=== PATIENT | female | born 1985 | race Caucasian/White ===

== ENCOUNTER → 2017-05-08 | Outpatient (CLI) | payer BC ==
[~2017-05-08] MED LIST: antidepressant
--- NOTE | 2017-05-09 07:09 | RAD ---
Lumbar spine, 3 views, 05/08/2017: History: Low back pain The lumbar vertebral heights and intervertebral disc spaces are well-maintained. No fracture or dislocation is identified. An IUD is noted in the pelvis at the midline. IMPRESSION: No significant lumbar spine abnormality is detected.
== END | disposition home or self-care (01) ==
LOC: RAD 17:42
PROVIDERS: ATTEND Nurse Practitioner Family
DX: M54.5 Low back pain (principal)
CPT/HCPCS: 72100

== ENCOUNTER 2017-06-18 12:07 | Emergency (ER) | payer BC ==
[~2017-06-18] VITALS: Ht 154.9 cm; Wt 90.7 kg
--- NOTE | 2017-06-18 12:34 | PHYS DOC ---
Past History Past Medical History: Depression Past Surgical History: Appendectomy Additional Past Surgical Histo: bunion repair Smoking: Non-smoker Alcohol Use: None Drug Use: None Adult General Chief Complaint Chief Complaint: SHORTNESS OF BREATH HPI HPI Patient is a 31 yo female with hx of depression and ?? seasonal or environmental allergies who presents with a rash that began yesterday with some generalized feelings of shortness of breath. Patient is a mother of 3 who has a Mirena at this time works as an teacher emotionally impaired who felt an itchy rash develop on her yesterday on her chest wall and her face. She took some Benadryl for her symptoms and unfortunately did not feel any better. She developed some shortness of breath and feeling of "wooziness when the symptoms occurred. She denied any chest pain, abdominal pain, nausea, vomiting, URI-like symptoms like runny nose cough congestion or otherwise. She has sick contact all times when working at the school denies any rash on her hands, palms or soles of her feet she denies any tickborne illnesses, denies any travel outside the country, recent anabiotic use, night sweats fevers or weight loss or other complaints. Considered upon arrival as rashes to consider is important to rule out Jasper spotted fever, Lyme Disease, Measles, Mumps, rubella Necrotizing fasciitis toxic shock syndrome, meningococcemia, erythema multiforme , David Levi syndrome, TEN , ITP, TTP, HSP, or disseminated gonorrhea Review of Systems Review of Systems Constitutional: Denies fever or chills [] Eyes: Denies change in visual acuity, redness, or eye pain [] HENT: Denies nasal congestion or sore throat [] Respiratory: Negative for cough positive for mild shortness of breath Cardiovascular: No additional information not addressed in HPI [] GI: Denies abdominal pain, nausea, vomiting, bloody stools or diarrhea [] : Denies dysuria or hematuria [] Musculoskeletal: Denies back pain or joint pain [] Integument: Acid for itchiness and flushing to her skin on her face chest wall Neurologic: Denies headache, focal weakness or sensory changes positive for symptoms of feeling lightheaded and dizzy with the shortness of breath that was transient[] Endocrine: Denies polyuria or polydipsia [] All other systems were reviewed and found to be within normal limits, except as documented in this note. Allergies Allergies Allergies Coded Allergies Type Severity Reaction Last Updated Verified No Known Drug Allergies 02/09/13 No Physical Exam Physical Exam Other vital signs on the chart at this time patient is not tachycardic not tachypnea not hypoxic otherwise normal Constitutional: Well developed, well nourished, no acute distress, non-toxic appearance. She seems somewhat anxious[] HENT: Normocephalic, atraumatic, bilateral external ears normal, oropharynx moist no oral lesions no evidence of tonsillar hypertrophy or exudates., nose normal. [] Eyes: PERRLA, EOMI, conjunctiva normal, no discharge. [] Neck: Normal range of motion, no tenderness, supple, no stridor. [] Cardiovascular:Heart rate regular rhythm, no murmur [] Lungs & Thorax: Bilateral breath sounds clear to auscultation [] Abdomen: Bowel sounds normal, soft, no tenderness, no masses, no pulsatile masses. [] Skin: Has a slight/flushed appearance to the face and cheeks. It is distributed in a bat wing-like pattern on her face and mildly on her chest wall. There are no clear urticaria. Is no mucus member involvement her conjunctiva or mouth. Patient has no pulsatile involvement. There is no target lesions, vesicles, petechiae or rash in her lower external knees. Patient has no joint pain or swelling. Back: No tenderness, no CVA tenderness. [] Extremities: No tenderness, no cyanosis, no clubbing, ROM intact, no edema. [] Neurologic: Alert and oriented X 3, normal motor function, normal sensory function, no focal deficits noted. [] Psychologic: Affect normal, judgement normal, mood normal. [] EKG EKG Patient EKG read by me demonstrate a heart rate of 75 it is sinus rhythm with a P waves every QRS. Patient's MO intervals normal at 120, QRS width is 86 which is normal, QTC is 427 which is normal. Patient has a normal EKG time of EKG is 12:47 PM 06/18/2017[] Radiology/Procedures Radiology/Procedures [] Course & Med Decision Making Course & Med Decision Making Pertinent Labs and Imaging studies reviewed. (See chart for details) []She presents with itching and a rash and reaction to Benadryl to include mild shortness of breath and dizziness. She is on a Mirena implant but she has no other PE risk factors. She is not tachypnea, tachycardic, hypoxic or having any respiratory difficulty at this time. She seems slightly anxious I will provide her Atarax and Pepcid as well as prednisone for her allergic reaction and continue to monitor as a wait for an EKG. EKG is normal, patient is resting quietly with normal vital signs to include no hypoxia or tachypnea and tachycardia. Criteria: Age < than 50 years Heart rate < 100 Oxygen saturation > 95% No hemoptysis No estrogen use No prior DVT or PE No unilateral leg swelling No surgery or trauma requiring hospitalization within the prior 4 weeks With a negative set of vital signs patient's itching is improved but not resolved her redness and flushing interfaces improve considerably secondary evaluation. At this point patient will be provided supportive medications include topical steroid cream for face oral H1 and H2 blockers and PCP follow- up with referral to dermatology or allergy. Impression: Allergic reaction unclear etiology discharge: I've spoken with the patient and/or caregivers. I've explained the patient's condition, diagnosis and treatment plan based on information available to me at this time. I've answered the patient's and/or caregivers questions and addressed any concerns. The patient and/or caregivers have a good understanding the patient's diagnosis, condition and treatment plan as can be expected at this point. Vital signs have been stabilized. The patient's condition is stable for discharge from the emergency department. The patient will pursue further outpatient evaluation with her primary care provider or other designated consulting physician as outlined in the discharge instructions. Patient and/or caregivers are agreeable to this plan of care and follow-up instructions have been explained in detail. The patient and/or caregivers have received these instructions in written format and expressed understanding of these discharge instructions. The patient and her caregivers are aware that if any significant change in condition or worsening of symptoms should prompt him to immediately return to this of the closest emergency department. If an emergent department is not readily available I would encourage him to call 911. Renea Disclaimer Caterinaon Disclaimer This electronic medical record was generated, in whole or in part, using a voice recognition dictation system. Departure Departure: Impression: Primary Impression: Allergic reaction Disposition: 01 HOME, SELF-CARE Condition: STABLE Referrals: ZIA SALVADOR APRN (PCP) Patient Instructions: Allergies, Generic, Allergy Skin Testing Additional Instructions: discharge: I've spoken with the patient and/or caregivers. I've explained the patient's condition, diagnosis and treatment plan based on information available to me at this time. I've answered the patient's and/or caregivers questions and addressed any concerns. The patient and/or caregivers have a good understanding the patient's diagnosis, condition and treatment plan as can be expected at this point. Vital signs have been stabilized. The patient's condition is stable for discharge from the emergency department. The patient will pursue further outpatient evaluation with her primary care provider or other designated consulting physician as outlined in the discharge instructions. Patient and/or caregivers are agreeable to this plan of care and follow-up instructions have been explained in detail. The patient and/or caregivers have received these instructions in written format and expressed understanding of these discharge instructions. The patient and her caregivers are aware that if any significant change in condition or worsening of symptoms should prompt him to immediately return to this of the closest emergency department. If an emergent department is not readily available I would encourage him to call 911. Scripts Famotidine (PEPCID) 20 Mg Tablet 1 TAB PO BID, #20 TAB 0 Refills Prov: TITO GOLDSTEIN MD 06/18/17 Prednisone (PREDNISONE) 20 Mg Tablet 3 TAB PO DAILY for 5 Days, #15 TAB Prov: TITO GOLDSTEIN MD 06/18/17 Fluticasone Propionate (CUTIVATE) 30 Gm Cream..g. 1 LIBBY TP BID, #60 GM 1 Refill Prov: TITO GOLDSTEIN MD 06/18/17 Hydroxyzine Pamoate (VISTARIL) 25 Mg Capsule 1 CAP PO TID, #30 CAP 0 Refills Prov: TITO GOLDSTEIN MD 06/18/17 TITO GOLSDTEIN MD Jun 18, 2017 12:34
[2017-06-18] MEDS ORDERED: predniSONE 20 MG TABLET PO ONE (13:00)
[2017-06-18] MEDS ORDERED: FAMOTIDINE 20 MG TABLET PO ONE (13:00)
[2017-06-18] MEDS ORDERED: hydrOXYzine HCL 25 MG TABLET PO PRN (13:00)
--- NOTE | 2017-06-18 13:02 | EKG ---
[address] [address] Test Date: 2017-06-18 Test Time: 12:47:23 Pat Name: MANDY SOTELO Department: Room: Gender: F Horse [employer] Worker: MACKENZIE : 1985 Requested By: TITO GOLDSTEIN Order Number: [id number] Reading MD: Hector Bragg MD Measurements Intervals [place] Rate: 75 P: 31 SC: 120 QRS: 43 QRSD: 86 T: 14 QT: 380 QTc: 427 Interpretive Statements SINUS RHYTHM Electronically Signed On 06-21-2017 14:10:04 CDT by Hector Bragg MD
[2017-06-18 13:20] VITALS: BP 107/67
[2017-06-18] MEDS ORDERED: PRED20TA PO (13:56)
[2017-06-18] MEDS ORDERED: FAMO-63 PO (13:56)
[2017-06-18] MEDS ORDERED: HYDR25CA PO (13:56)
[2017-06-18] MEDS ORDERED: FLUT30CR5 TP (13:56)
== END 2017-06-18 14:20 | disposition home or self-care (01) ==
LOC: ER 12:07
DX: T78.40XA Allergy, unspecified, initial encounter (principal); F32.9 Major depressive disorder, single episode, unspecified; X58.XXXA Exposure to other specified factors, initial encounter
CPT/HCPCS: 93005; 99284; J7512

== ENCOUNTER → 2017-07-03 | Outpatient (CLI) | payer BC ==
[2017-06-18 13:20] VITALS: BP 107/67
[~2017-07-03] MED LIST changes: +FAMO-63 PO; +FLUT30CR5 TP; +HYDR25CA PO; +PRED20TA PO
--- NOTE | 2017-07-03 16:44 | RAD ---
Right foot, 3 views, 07/03/2017: History: Pain after walking There is a surgical screw and a pin fragment within the proximal first metatarsal presumably related to an old healed osteotomy or fracture. No acute fracture or dislocation is identified. There is a small inferior calcaneal spur. There is mild subcutaneous edema. IMPRESSION: 1. Postsurgical change involving the first metatarsal. 2. No acute bony abnormality is detected.
== END | disposition home or self-care (01) ==
LOC: PMG 15:12
PROVIDERS: ATTEND Nurse Practitioner Family
DX: M77.31 Calcaneal spur, right foot (principal); R60.0 Localized edema; Z98.890 Other specified postprocedural states
CPT/HCPCS: 73630

== ENCOUNTER → 2018-06-24 | Outpatient (CLI) | payer BC ==
--- NOTE | 2018-06-24 17:15 | RAD ---
Pelvic ultrasound History: Pelvic pain and amenorrhea, IUD removed 2 months ago Comparison: None. Findings: Multiple transabdominal sonographic images of pelvis are submitted. Uterus measured 11.9 x 4.8 x 5 cm. Endometrium measured 1.1 cm in thickness, some small echogenic foci likely due to calcifications. Right ovary measured 3 x 2.8 x 1.6 cm, normal low resistance vascularity. Left ovary measured 4.8 x 4.8 x 3.8 cm. There is a hypoechoic lesion of the left ovary about 4.6 x 4.3 x 3.6 cm. There is normal low resistance vascularity of the left ovary. No free fluid is demonstrated. Impression: 1. Endometrial thickness potentially can be within normal limits for the patient's age, some small foci of nonspecific calcification. 2. There is left ovarian cyst up to 4.6 cm. Electronically signed by: Eddy Holland MD (06/24/2018 5:12 PM) [id number]
== END | disposition home or self-care (01) ==
LOC: US 15:20
PROVIDERS: ATTEND Obstetrics & Gynecology
DX: N83.202 Unspecified ovarian cyst, left side (principal)
CPT/HCPCS: 76856

== ENCOUNTER → 2018-11-07 | Outpatient (CLI) | payer BC ==
[2018-11-07 16:17] LABS: BASO % 1 % (0-3); EOS # 0.2 x10^3/uL (0.0-0.7); EOS % 2 % (0-3); HEMATOCRIT 39.5 % (36.0-47.0); HEMOGLOBIN 12.9 g/dL (12.0-15.5); LYMPH # 1.7 x10^3/uL (1.0-4.8); LYMPH % 16 % (24-48); MEAN CORPUSCULAR HEMOGLOBIN 30 pg (25-35); MEAN CORPUSCULAR HGB CONC 33 g/dL (31-37); MEAN CORPUSCULAR VOLUME 93 fL (79-100); MONO # 0.6 x10^3/uL (0.0-1.1); MONO % 5 % (0-9); NEUT # 8.1 x10^3uL (1.8-7.7); NEUT % 76 % (31-73); PLATELET COUNT 359 x10^3/uL (140-400); RED BLOOD COUNT 4.26 x10^6/uL (3.50-5.40); RED CELL DISTRIBUTION WIDTH 13.1 % (11.5-14.5); WHITE BLOOD COUNT 10.6 x10^3/uL (4.0-11.0)
[2018-11-07 16:31] LABS: ALBUMIN 3.4 g/dL (3.4-5.0); ALBUMIN/GLOBULIN RATIO 0.9 (1.0-1.7); CALCIUM 8.8 mg/dL (8.5-10.1); CREATININE 0.8 mg/dL (0.6-1.0); GFR 82.1; POTASSIUM 3.2 mmol/L (3.5-5.1); TOTAL BILIRUBIN 0.3 mg/dL (0.2-1.0); TOTAL PROTEIN 7.3 g/dL (6.4-8.2)
--- NOTE | 2018-11-07 17:41 | RAD ---
Examination: PELVIS COMPLETE History: Left ovarian cyst follow-up. Comparison/Correlation: 06/22/2018 pelvic ultrasound exam Findings: Transabdominal pelvic ultrasound exam was performed. Uterus measures 11.5 cm x 6.2 cm x 5.2 cm. Myometrium is unremarkable. Endometrial thickness of 0.8 cm is evident. No intrauterine fluid collection. Right adnexa measures 2.4 cm x 2.2 cm x 1.87. Left adnexa measures 4.5 cm x 2.6 cm x 3.6. Left adnexal cyst measuring 2.6 x 1.4 cm x 1.8 cm is present and decreased in size compared previous exam. Normal ovarian flow bilaterally seen. No pelvic free fluid. Impression: Left ovarian cyst is present and significantly less in size compared to the cyst seen on the previous exam. No suspicious components identified.. Electronically signed by: Osmani Castillo MD (11/07/2018 5:38 PM) [facility]
[2018-11-08 08:50] LABS: ESTRADIOL LEVEL 79.1 pg/mL (.); FSH 5.2 mIU/mL (.); LUTEINIZING HORMONE 2.4 mIU/mL (.); PROLACTIN 56.4 ng/mL (4.8-23.3)
[2018-11-08 13:08] LABS: INSULIN LEVEL 11.6 uIU/mL (2.6-24.9)
[2018-11-08 13:32] LABS: THYROID STIM HORMONE (TSH) 1.876 uIU/mL (0.358-3.740)
[2018-11-10 03:12] LABS: HEMOGLOBIN A1C 5.7 % (4.8-5.6)
[2018-11-10 09:07] LABS: TESTOSTERONE FREE 0.13 ng/dL (0.10-0.85); TESTOSTERONE TOTAL 14 ng/dL (8-48)
== END | disposition home or self-care (01) ==
LOC: US 14:33
PROVIDERS: ATTEND Obstetrics & Gynecology
DX: N83.292 Other ovarian cyst, left side (principal)
CPT/HCPCS: 36415; 76856; 80053; 80061; 82627; 82670; 83001; 83002; 83036; 83525; 84146; 84402; 84403; 84443; 85025

== ENCOUNTER → 2018-12-27 | Outpatient (CLI) | payer BC ==
[~2018-12-27] MED LIST changes: +IOHEXOL 300 MG/ML 50 ML VIAL. IV ONE
--- NOTE | 2018-12-27 16:10 | RAD ---
Examination: CT HEAD WO/W CONTRAST History: Elevated prolactin Comparison/Correlation: None Findings: Axial images obtained without and with contrast. Ventricles are normal size. No midline shift or mass effect. No abnormal enhancement identified. No sizable aneurysm delineated on this nonarteriographic exam. The pituitary fossa is unremarkable. Bony structures are unremarkable. Visualized paranasal sinuses are clear. Impression: Normal CT head without/with contrast. PQRS Compliance Statement: One or more of the following individualized dose reduction techniques were utilized for this examination: 1. Automated exposure control 2. Adjustment of the mA and/or kV according to patient size 3. Use of iterative reconstruction technique Electronically signed by: Osmani Castillo MD (12/27/2018 4:07 PM) [facility]
== END | disposition home or self-care (01) ==
LOC: CT 10:56
PROVIDERS: ATTEND Obstetrics & Gynecology
DX: E22.1 Hyperprolactinemia (principal)
CPT/HCPCS: 70470; Q9967

== ENCOUNTER 2019-03-02 02:34 | Emergency (ER) | payer BC ==
[~2019-03-02] VITALS: Ht 154.9 cm; Wt 90.7 kg
[~2019-03-02 02:34] MED LIST changes: -IOHEXOL 300 MG/ML 50 ML VIAL. IV ONE
--- NOTE | 2019-03-02 03:11 | PHYS DOC ---
Past History Past Medical History: Depression, Diabetes Past Surgical History: Appendectomy Additional Past Surgical Histo: bunion repair Smoking: Non-smoker Alcohol Use: None Drug Use: None Adult General Chief Complaint Chief Complaint: VAGINAL BLEEDING [facility] HPI 33-year-old female presents with vaginal bleeding for 2 days. She presents early this morning because she is having clots to the size of a golf ball. She has not had clots this large before. The patient was on control with no menstrual cycle for 6 or 7 years. They decided they wanted to try to get so they discontinued her hormone therapy nearly a year ago. She has had irregular menses ever since. She has not gotten as far she knows. Her physician placed her back on progesterone the second week of December and she just stopped that medication 2 days ago. She then began have bleeding and blood clots at that time. Her last menstrual period was December to December. She's had some minor cramping, but denies any other significant symptoms. She does not have dizziness, shortness of breath, weakness. Denies fever or chills. Review of Systems Review of Systems Constitutional: Denies fever or chills [] Eyes: Denies change in visual acuity, redness, or eye pain [] HENT: Denies nasal congestion or sore throat [] Respiratory: Denies cough or shortness of breath [] Cardiovascular: No additional information not addressed in HPI [] GI: Denies abdominal pain, nausea, vomiting, bloody stools or diarrhea [] : Vaginal bleeding[] Musculoskeletal: Denies back pain or joint pain [] Integument: Denies rash or skin lesions [] Neurologic: Denies headache, focal weakness or sensory changes [] Endocrine: Denies polyuria or polydipsia [] All other systems were reviewed and found to be within normal limits, except as documented in this note. Allergies Allergies Allergies Coded Allergies Type Severity Reaction Last Updated Verified No Known Drug Allergies 06/18/17 No Physical Exam Physical Exam Constitutional: Well developed, obese, well nourished, no acute distress, non- toxic appearance. [] HENT: Normocephalic, atraumatic, bilateral external ears normal, oropharynx moist, no oral exudates, nose normal. [] Eyes: PERRLA, EOMI, conjunctiva normal, no discharge. [] Neck: Normal range of motion, no tenderness, supple, no stridor. [] Cardiovascular:Heart rate regular rhythm, no murmur [] Lungs & Thorax: Bilateral breath sounds clear to auscultation [] Abdomen: Bowel sounds normal, soft, no tenderness, no masses, no pulsatile masses. [] Skin: Warm, dry, no erythema, no rash. [] Back: No tenderness, no CVA tenderness. [] Extremities: No tenderness, no cyanosis, no clubbing, ROM intact, no edema. [] Neurologic: Alert and oriented X 3, normal motor function, normal sensory function, no focal deficits noted. [] Psychologic: Affect normal, judgement normal, mood normal. [] Current Patient Data Vital Signs Vital Signs Date Time Temp Pulse Resp B/P (MAP) Pulse Ox O2 Delivery O2 Flow Rate FiO2 03/02/19 02:37 98.0 95 16 98 Room Air Lab Results Laboratory Tests Test 03/02/19 02:56 POC Urine HCG, Qualitative hcg negative (Negative) EKG EKG [] Radiology/Procedures Radiology/Procedures [] Course & Med Decision Making Course & Med Decision Making Pertinent Labs and Imaging studies reviewed. (See chart for details) The patient's urinalysis is negative for infection. She is not . This is likely normal hormonal withdrawal bleeding as a be expected. The patient is not having any symptoms of excessive blood loss. We have discussed symptoms of acute blood loss anemia such as weakness, dizziness, headache, shortness of breath. If the symptoms develop she will call her OB and return to the emergency room. She will follow up with her OB to continue her plan for fertility management. The patient is stable for discharge at this time. [] Dragon Disclaimer Dragon Disclaimer This electronic medical record was generated, in whole or in part, using a voice recognition dictation system. Departure Departure: Impression: Primary Impression: Menorrhagia with irregular cycle Disposition: HOME, SELF-CARE Condition: STABLE Referrals: MIHAELA MCKOY (PCP) Patient Instructions: Menorrhagia ANNABELLE VELASQUEZ DO Mar 02, 2019 03:11
[2019-03-02 03:18] LABS: CLARITY,URINE HAZY; COLOR,URINE YELLOW
[2019-03-02 03:19] LABS: BACTERIA,URINE 0 /HPF (0-FEW); BILIRUBIN,URINE NEG (NEG); GLUCOSE,URINE NEG (NEG); NITRITE,URINE NEG (NEG); RBC,URINE >40 /HPF (0-2); SQUAMOUS EPITHELIAL CELL,UR OCC /LPF; UROBILINOGEN,URINE 0.2 mg/dL (0.2 mg/dL); WBC,URINE OCC /HPF (0-4)
[2019-03-02 03:49] VITALS: BP 120/70
== END 2019-03-02 03:50 | disposition home or self-care (01) ==
LOC: ER 02:34
DX: N92.0 Excessive and frequent menstruation with regular cycle (principal); E11.9 Type 2 diabetes mellitus without complications; Z90.89 Acquired absence of other organs
CPT/HCPCS: 81001; 81025; 99283